=== PATIENT | male | born 1960 | race Caucasian/White ===

== ENCOUNTER → 2024-09-03 | Outpatient (CLI) | payer MEDICARE, MEDICAID | LOC: M PLAIMG 13:05 | PROVIDERS: ATTEND Physician Assistant | DX: J32.8 Other chronic sinusitis (principal) ==

== ENCOUNTER 2025-02-13 11:24 | Emergency (ER) | payer MEDICARE, MEDICAID ==
[~2025-02-13] VITALS: Ht 185.4 cm; Wt 66.8 kg
[~2025-02-13 11:24] MED LIST: ASCO500T PO; ASPI81CH8 PO; ASPI81TA26 PO; ATOR1TAB21 PO; ATOR80TA59 PO; CEFT1INJ65 IV; CLOP75TA2 PO; CYCL-707 PO; DAPA10TA5 PO; ELIQ5TAB PO; GABA-1171 PO; GABA-1172 PO; GLIP-320 PO; IBUP200T46 PO; INSU100I16 SQ; INSUHUMDS SC; INSULANT SC; JANU100T PO; LANTINJ4; LANTINJ4 SC; LINE1TAB6 PO; NARC1SPR; NEUR300C PO; PANT40TA29 PO; PERC5TAB12 PO; PERCOCET PO; SANT250O8 TOP; VITA500T41 PO; VITAD1000T PO; XARE2.5T PO
[2025-02-13] MEDS: NS (Normal Saline) 0.9% 1,000 ML IV ONE (13:37)
[2025-02-13] MEDS: ONDANSETRON 4MG 2ML VIAL IV ONE (13:37)
[2025-02-13 13:40] LABS: BASO # 0.1 10^3/uL (0.0-0.2); BASO % 0.3 % (0.0-1.0); EOS # 0.0 10^3/uL (0.0-0.5); EOS % 0.0 % (0.0-3.0); LYMPH # 1.0 10^3/uL (1.5-5.0); LYMPH % 5.4 % (24.0-44.0); MONO # 1.3 10^3/uL (0.0-0.8); MONO % 6.7 % (2.0-8.0); NEUTROPHILS # 16.7 10^3/uL (1.5-8.5); NEUTROPHILS % 87.1 % (36.0-66.0); PLATELET COUNT, AUTOMATED 426 10^3/uL (150-450)
[2025-02-13 14:07] LABS: ALT/SGPT 35.0 U/L (7.0-40); AST/SGOT 48.0 U/L (<34)
[2025-02-13 15:30] VITALS: BP 118/69; TEMP 98.3; O2SAT 92
== END 2025-02-13 15:35 | disposition home or self-care (01) ==
LOC: EDBD 11:24 → M ED 11:24
DX: K52.9 Noninfective gastroenteritis and colitis, unspecified (principal); R11.2 Nausea with vomiting, unspecified; E11.9 Type 2 diabetes mellitus without complications; K21.9 Gastro-esophageal reflux disease without esophagitis; Z79.1 Long term (current) use of non-steroidal anti-inflammatories (NSAID); Z79.01 Long term (current) use of anticoagulants; Z79.4 Long term (current) use of insulin; Z79.899 Other long term (current) drug therapy
CPT/HCPCS: 74021; 80076; 83605; 83690; 85025; 87040; 93041; 96374; 99285; J2405